=== PATIENT | male | born 1990 | race Two or more races ===

== ENCOUNTER 2023-08-11 22:36 | Emergency (ER) | payer OTHER ==
[~2023-08-11] VITALS: Ht 157.5 cm; Wt 77.3 kg
[2023-08-11 23:12] VITALS: TEMP 98.6
[2023-08-11] MEDS ORDERED: IBUPROFEN 600 MG TABLET PO ONE (23:15)
[2023-08-11 23:58] VITALS: BP 128/71; PULSE 74; RESP 16
== END 2023-08-12 00:05 | disposition home or self-care (01) ==
LOC: EMS 22:40
DX: S43.402A Unspecified sprain of left shoulder joint, initial encounter (principal); W22.8XXA Striking against or struck by other objects, initial encounter; Y93.66 Activity, soccer; Y92.89 Other specified places as the place of occurrence of the external cause; Y99.8 Other external cause status
CPT/HCPCS: 99283